=== PATIENT | female | born 1990 | race African-American/Black ===

== ENCOUNTER 2017-07-27 08:54 | Emergency (ER) | payer BC, OTHER, SELFPAY ==
--- NOTE | 2017-07-27 11:59 | ULT ---
BILATERAL UPPER EXTREMITY VENOUS DOPPLER WITH SPECTRAL ANALYSIS AND COLOR-FLOW EVALUATION: 07/27/2017 HISTORY: Elevated D-dimer. The patient also reports posterior right leg pain, which started one week ago. FINDINGS: Rose-scale, color-flow, Doppler evaluation, and spectral analysis of the bilateral upper extremity v enous structures is performed with 2D imaging. The bilateral upper extremity common femoral, superf icial femoral, popliteal, posterior tibial, most proximal greater saphenous, and profunda femoral ve ins are imaged. The distal superficial femoral veins bilaterally are not well seen on Rose-scale imaging, which limi ts evaluation for nonocclusive DVT, but there is normal flow within these venous structures, and the re is no evidence of an occlusive thrombus at these levels. There is otherwise normal lumen shirley sibility, flow, and augmentation in the remaining visualized deep venous structures of the bilateral upper extremities. IMPRESSION: Limited evaluation for nonocclusive thrombus in the distal superficial veins bilaterally due to diff iculty imaging on Rose-scale images, but there is normal flow within these veins. There is otherwis e no evidence of a deep venous thrombosis involving the remaining visualized deep venous structures of the bilateral upper extremities. POS: [facility]
== END 2017-07-27 12:16 | disposition home or self-care (01) ==
LOC: ERS 08:54
DX: S86.911A Strain of unspecified muscle(s) and tendon(s) at lower leg level, right leg, initial encounter (principal); F41.9 Anxiety disorder, unspecified; Z79.899 Other long term (current) drug therapy; X58.XXXA Exposure to other specified factors, initial encounter
CPT/HCPCS: 36415; 85379; 93970

== ENCOUNTER 2017-07-31 22:36 | Emergency (ER) | payer SELFPAY | END 2017-08-01 01:35 | disposition home or self-care (01) | LOC: ERS 22:36 | DX: F43.0 Acute stress reaction (principal); F41.9 Anxiety disorder, unspecified; Z79.899 Other long term (current) drug therapy | CPT/HCPCS: 99284 ==

== ENCOUNTER 2017-09-06 18:27 | Emergency (ER) | payer SELFPAY ==
[2017-09-06 19:20] LABS: Hematocrit 40.7 % (36.0-47.0); Mean Platelet Volume 6.7 fL (7.4-10.4); Red Blood Cell (RBC) Count 4.86 mill/uL (4.20-5.40); White Blood Cell (WBC) Count 5.2 thou/uL (4.8-10.8)
[2017-09-06 19:38] LABS: Bilirubin Negative (Negative); Blood, Urine Negative (Negative); Glucose, Urine (Dipstick) Negative (Negative); Ketone, Urine Negative (Negative); Nitrite Negative (Negative); Protein, Urine (Dipstick) Negative (Neg-Trace)
[2017-09-06 19:41] LABS: ALT (SGPT) 12 U/L (8-55); AST (SGOT) 15 U/L (5-34); Alkaline Phosphatase 59 U/L (40-150); Anion Gap 9 mmol/L (10-20); BUN (Urea Nitrogen) 10 mg/dL (7.0-18.7); Bilirubin, Total 0.2 mg/dL (0.2-1.2); Calc. Creatinine Clearance 0 mL/min (70-130); Calcium 9.7 mg/dL (7.8-10.44); Carbon Dioxide 29 mmol/L (22-29); Chloride 106 mmol/L (98-107); Estimated GFR-MDRD Greater than 90; Protein, Total 8.3 g/dL (6.0-8.3)
[2017-09-06 19:50] LABS: Neutrophil 28 % (42-75)
== END 2017-09-06 20:21 | disposition home or self-care (01) ==
LOC: ERS 18:27
DX: K52.9 Noninfective gastroenteritis and colitis, unspecified (principal); F41.9 Anxiety disorder, unspecified; Z79.899 Other long term (current) drug therapy
CPT/HCPCS: 36415; 80053; 81003; 81025; 85025; 99284

== ENCOUNTER 2017-10-18 04:34 | Emergency (ER) | payer SELFPAY | END 2017-10-18 07:15 | disposition left against medical advice (07) | LOC: ERS 04:34 | DX: Z53.21 Procedure and treatment not carried out due to patient leaving prior to being seen by health care provider (principal) ==

== ENCOUNTER 2017-10-19 08:17 | Emergency (ER) | payer SELFPAY | END 2017-10-19 09:36 | disposition home or self-care (01) | LOC: ERS 08:17 | DX: S86.911A Strain of unspecified muscle(s) and tendon(s) at lower leg level, right leg, initial encounter (principal); F41.9 Anxiety disorder, unspecified; Z79.899 Other long term (current) drug therapy; X58.XXXA Exposure to other specified factors, initial encounter | CPT/HCPCS: 99283 ==

== ENCOUNTER 2018-06-20 18:22 | Inpatient (IN) | payer SELFPAY ==
[~2018-06-20 18:22] MED LIST: ISOVUE-370 76%-LOCM 1 ML ONE
[2018-06-20 19:10] LABS: Bilirubin Negative (Negative); Blood, Urine Negative (Negative); Clarity CLEAR (Clear); Glucose, Urine (Dipstick) Negative (Negative); Leukocyte Negative (Negative); Nitrite Negative (Negative); Protein, Urine (Dipstick) Negative (Neg-Trace); Specific Gravity, Urine 1.027 (1.002-1.036)
[2018-06-20 19:11] LABS: Pregnancy Test - Urine (BHCG) Negative (Negative); Pregu Control Background? CLEAR/WHITE (CLR/WHITE); Pregu Control Bar Appear? YES (CONTROL BAR); Specific Gravity 1.027 (1.002-1.036)
[2018-06-20] MEDS ORDERED: Dicyclomine 20 MG TAB ONE (20:14)
[2018-06-20] MEDS ORDERED: Ondansetron ODT 4 MG TAB ONE (20:14)
[2018-06-20 20:33] LABS: #Basophils 0.1 thou/uL (0.0-0.2); #Lymphocytes 2.4 thou/uL (1.20-3.40); #Monocytes 0.5 thou/uL (0.11-0.59); #Neutrophils 1.9 thou/uL (1.40-6.50); %Basophils 1.3 % (0.0-1.0); %Eosinophils 0.4 % (0.0-10.0); %Lymphocytes 49.2 % (21.0-51.0); %Monocytes 9.5 % (0.0-10.0); %Neutrophils 39.7 % (42.0-75.0); Hemoglobin 14.4 g/dL (12.0-16.0); Mean Corpuscular HGB CONC 32.9 g/dL (32.0-36.0); Mean Corpuscular Hemoglobin 27.8 pg (27.0-31.0); Mean Corpuscular Volume 84.3 fL (78.0-98.0); Mean Platelet Volume 6.9 fL (7.4-10.4); Platelet Count 327 thou/uL (130-400); RBC Distribution Width 12.1 % (11.5-14.5); Red Blood Cell (RBC) Count 5.18 mill/uL (4.20-5.40); White Blood Cell (WBC) Count 4.8 thou/uL (4.8-10.8)
--- NOTE | 2018-06-20 20:55 | CT ---
CT ABDOMEN AND PELVIS WITH IV CONTRAST: HISTORY: Abdominal pain. FINDINGS: The lung bases are clear. The liver, spleen, kidneys, adrenal glands, and pancreas are within normal limits. Fibroid involvement of the uterus. The urinary bladder is incompletely distended. Within the inferior vena cava, below the level of the renal veins and extending into the right common iliac vein, is a tubular low density filling defect, measuring up to 1 cm and extending over a lengt h of approximately 12 cm. The more distal iliac and femoral veins do not contain this clot. IMPRESSION: Tubular thrombus within the lower inferior vena cava and the right common iliac vein, as detailed abo ve. Findings were called to Dr. Austin in the emergency department at 2042 hours. CODE CR POS: [id number]
[2018-06-20 21:15] LABS: ALT (SGPT) 11 U/L (8-55); AST (SGOT) 23 U/L (5-34); Albumin 4.6 g/dL (3.5-5.0); Alkaline Phosphatase 71 U/L (40-150); Anion Gap 15 mmol/L (10-20); BUN (Urea Nitrogen) 12 mg/dL (7.0-18.7); Bilirubin, Total 0.3 mg/dL (0.2-1.2); Calc. Creatinine Clearance 0 mL/min (70-130); Calcium 9.9 mg/dL (7.8-10.44); Carbon Dioxide 24 mmol/L (22-29); Chloride 102 mmol/L (98-107); Estimated GFR-MDRD Greater than 90; Globulin 4.4 g/dL (2.4-3.5); Glucose 81 mg/dL (70-105); Lipase 27 U/L (8-78); Potassium 4.4 mmol/L (3.5-5.1); Sodium 137 mmol/L (136-145)
[2018-06-20] MEDS ORDERED: Lorazepam 2 MG/ML VIAL ONE (21:21)
[2018-06-20 21:28] LABS: INR-International Normal Ratio 0.9; PTT 29.8 SEC (22.9-36.1); Prothrombin Time 12.3 SEC (12.0-14.7)
[2018-06-20] MEDS ORDERED: Enoxaparin Sodium 100 MG/ML SYRINGE ONE ×2 (21:55→21:58)
[2018-06-20 22:34] LABS: PTT 30.2 SEC (22.9-36.1)
[2018-06-20 22:35] LABS: D-Dimer Test 0.85 *mcg/mL (0.27-0.43)
--- NOTE | 2018-06-21 00:20 | HP ---
PRIMARY CARE PHYSICIAN: Dr. Oleg Singletary. REASON FOR ADMISSION: IVC thrombus. HISTORY OF PRESENT ILLNESS: A 28-year-old -Greek female with a history of anxiety disorder who presented to emergency room with a complaint of abdominal cramps and bloating. She reports that this type of abdominal cramps and bloating happens intermittently. She reports that with spicy food . She denies any abdominal distention. Only one time today she had diarrhea, which was greenish wit hout any fever or chills or blurred. She did not notice any pus or mucus with the stool. She did no t take any antibiotics. She did not have any fever or chills. She denies any UTI symptoms. The sym ptoms were going on for a period of time and that is why today, she decided to come to the emergency room for evaluation. In the emergency room, she was given Bentyl, Zofran. After that, patient's andria n was improved. She reports that whenever pain comes, at that time, the intensity is about 8 and aft er pain medication, it reduced to 4 and when I saw this patient, at that time, her abdominal pain was completely subsided. In the emergency room, she had a CT of the abdomen and pelvis, which showed tu bular thrombus within the lower inferior vena cava and the right common iliac vein. Patient denies a ny previous history of DVT or blurred or pulmonary embolism. She denies any chest pain, palpitation, dizziness, shortness of breath. She denies any immobilization. She denies any cancer history. She denies any family history of blood clot disorder. She denies any recent travel or immobilization. Only she reports that she has intermittent menorrhagia. Patient reports that she was on every 3 bryan hs hormonal injection, but she missed a couple of injections lately. CT angio was done because her D -dimer was slightly elevated and that is why incidentally tubular thrombus was found in the inferior vena cava. Subsequently, patient was given Lovenox 1 mg/kg and hypercoagulable workup was sent. ER physician spoke with the cardiovascular surgeon social worker delinquency prevention, and they recommended medical therapy. ALLERGIES: No known drug allergy. CURRENT HOME MEDICATIONS: Xanax 0.5 mg p.o. as needed, venlafaxine 150 mg p.o. at bedtime. REVIEW OF SYSTEMS: The following complete review of systems was negative, unless otherwise mentioned in the HPI or below: Constitutional: Weight loss or gain, ability to conduct usual activities. Sk in: Rash, itching. Eyes: Double vision, pain. ENT/Mouth: Nose bleeding, neck stiffness, pain, te nderness. Cardiovascular: Palpitations, dyspnea on exertion, orthopnea. Respiratory: Shortness of breath, wheezing, cough, hemoptysis, fever or night sweats. Gastrointestinal: Poor appetite, abdom inal pain, heartburn, nausea, vomiting, constipation, or diarrhea. Genitourinary: Urgency, frequenc y, dysuria, nocturia. Musculoskeletal: Pain, swelling. Neurologic/Psychiatric: Anxiety, depressio n. Allergy/Immunologic: Skin rash, bleeding tendency. Please see my HPI for pertinent positive and negative. PAST MEDICAL HISTORY: The patient does not have any previous medical history. PAST SURGICAL HISTORY: The patient had x1. PAST PSYCHIATRIC HISTORY: Anxiety disorder. SOCIAL HISTORY: The patient lives at home with family. No history of tobacco, alcohol, or illicit d rug abuse. FAMILY HISTORY: No strong family history of premature coronary artery disease, stroke, or cancer. N o family history of blood clot disorder. EMERGENCY ROOM COURSE: Patient is given IV fluid, Bentyl 20 mg, Zofran 4 mg, Ativan 0.5 mg, and Love nox 90 mg subcu. PHYSICAL EXAMINATION: VITAL SIGNS: On arrival, blood pressure 124/86, pulse 90, respiratory rate 18, temperature 99.1, sat uration 96% on room air, weight 90.7 kilograms. GENERAL: Patient is currently alert, awake, in no obvious acute distress. HEAD: Normocephalic, atraumatic. EYES: Pupils round, reactive to light. Extraocular muscle intact. ENT: Oropharynx within normal limits. Moist mucous membranes. No oral lesion, no pharyngeal erythe ma, no exudate. NECK: Supple. No JVD, no thyromegaly, no carotid bruit, no jugular venous distention. LUNGS: Clear to auscultation without any rhonchi or rales. CARDIAC: S1, S2 regular. No murmur, no gallop, no rub. ABDOMEN: Soft, bowel sounds present, nontender, nondistended. No organomegaly, no mass, no suprapub ic tenderness, no peritoneal signs, no guarding, no rigidity, no rebound. No suprapubic tenderness. EXTREMITIES: Upper extremity: Passive movement of all joints are normal. Lower extremities: No ed tammy. Good peripheral pulsation. No calf tenderness. SKIN: No skin rash. HEMATOLOGICAL: No lymphadenopathy. PSYCHIATRIC: Normal affect. SIGNIFICANT LABORATORY AND DIAGNOSTIC DATA: CT of the abdomen and pelvis with contrast showing tubul ar thrombus with the lower inferior vena cava and right common iliac vein. CBC: WBC 4.8, hemoglobin 14.4, platelets 327,000. INR 0.9. D-dimer 0.85. BMP shows sodium 137, potassium 4.4, chloride 102 , carbon dioxide 24, anion gap 15, BUN 12, creatinine 0.87 and glucose 81, calcium 9.9. LFT: AST 23 , ALT 11, alkaline phosphatase 71, albumin 4.6, lipase 27. Homocysteine 10.0. Urinalysis normal. P regnancy test negative. ASSESSMENT AND PLAN: 1. Abdominal pain, unclear etiology, unexplained and resolved intermittent in nature. 2. Mural thrombus in the inferior vena cava and right common iliac vein. Etiology uncertain. Hyper coagulable workup sent. We will consult automotive design drafter. The patient will be treated with Lovenox 1 mg /kg subcu twice daily. I have discussed with the patient about oral anticoagulation therapy, warfari n, as well as newer oral anticoagulant agent in detail. The patient will make decision tomorrow. Michell carmona has no insurance. She prefers cheaper medication. We will monitor PT and INR. We will also consu lt Cardiovascular Surgeon as well to look at the CT scan whether this finding is related with clot or something else. 3. Obesity. Dietary education given, weight loss education given. 4. Anxiety disorder. Continue Xanax and venlafaxine as per home dosage. 5. Uterine fibroid with a history of menorrhagia. The patient will need outpatient followup. 6. Deep venous thrombosis prophylaxis. Patient is already on full dose of Lovenox. 7. Gastrointestinal prophylaxis, Pepcid 20 mg p.o. b.i.d. 8. Code status: The patient is FULL CODE. Patient is making her decision by herself. Disposition plan based on clinical course. Follow up on thrombosis panel. Plan of care discussed wi th the patient in detail.
[2018-06-21] MEDS ORDERED: Zolpidem Tartrate 5 MG TAB PO PRN (00:48)
[2018-06-21] MEDS ORDERED: Milk Of Magnesia 30 ML UDCUP PO PRN (00:48)
[2018-06-21] MEDS ORDERED: Mag-Al 1200 mg/1200 mg/30 ML UDCUP PO PRN (00:48)
[2018-06-21] MEDS ORDERED: Senokot 8.6 MG TAB PO PRN (00:48)
[2018-06-21] MEDS ORDERED: Ondansetron HCl/PF 4 MG/2 ML Vial IVP PRN (00:48)
[2018-06-21] MEDS ORDERED: Ondansetron ODT 4 MG TAB PO PRN (00:48)
[2018-06-21] MEDS ORDERED: Loperamide HCl 2 MG CAP PO PRN (00:48)
[2018-06-21] MEDS ORDERED: Acetaminophen 325 MG TAB PO PRN (00:48)
[2018-06-21 01:00] VITALS: BMI 28.3
[2018-06-21 06:34] LABS: Anion Gap 12 mmol/L (10-20); BUN (Urea Nitrogen) 8 mg/dL (7.0-18.7); Calc. Creatinine Clearance 150 mL/min (70-130); Calcium 9.2 mg/dL (7.8-10.44); Carbon Dioxide 24 mmol/L (22-29); Chloride 107 mmol/L (98-107); Estimated GFR-MDRD Greater than 90; Glucose 94 mg/dL (70-105); Potassium 3.8 mmol/L (3.5-5.1); Sodium 139 mmol/L (136-145)
[2018-06-21 06:51] LABS: Prothrombin Time 13.3 SEC (12.0-14.7)
[2018-06-21 07:25] LABS: Eosinophils 2 % (0-10); Hemoglobin 12.9 g/dL (12.0-16.0); Lymphocytes 47 % (21-51); MDiff Complete? YES; Mean Corpuscular HGB CONC 32.6 g/dL (32.0-36.0); Mean Corpuscular Hemoglobin 27.8 pg (27.0-31.0); Mean Corpuscular Volume 85.2 fL (78.0-98.0); Mean Platelet Volume 6.8 fL (7.4-10.4); Monocytes 10 % (0-10); Myelocyte 1 % (0-0); Neutrophil 34 % (42-75); Platelet Count 314 thou/uL (130-400); RBC Distribution Width 12.3 % (11.5-14.5); RBC Morphology Normal; Reactive Lymphocytes 5 % (0-10); Red Blood Cell (RBC) Count 4.63 mill/uL (4.20-5.40); White Blood Cell (WBC) Count 4.9 thou/uL (4.8-10.8)
[2018-06-21] MEDS: Famotidine 20 MG TAB PO SCH ×2 (08:34→19:59)
[2018-06-21] MEDS: Venlafaxine HCl XR 75 MG CAP PO SCH (08:34)
[2018-06-21] MEDS: Enoxaparin Sodium 100 MG/ML SYRINGE SC SCH ×2 (08:35→19:59)
--- NOTE | 2018-06-21 10:41 | ULT ---
VENOUS DOPPLER DUPLEX ULTRASOUND BILATERAL LOWER EXTREMITIES: CPT: 25709 ICD-10-PCS: B54D INDICATIONS: Venous thrombosis. IVC thrombus. TECHNIQUE: Color-flow Doppler, spectral wave-form analysis of pulsed Doppler, and shah-scale imaging with compre ssion and augmentation were used to evaluate the bilateral common femoral, femoral, popliteal, pipe stem sawyer ior tibial, and superficial femoral veins, and the proximal portions of the profunda femoral and grea ter saphenous veins. FINDINGS: There is appropriate compressibility and flow within the imaged deep venous system of each lower extr emity without evidence of DVT identified. IMPRESSION: No deep venous thrombosis within the visualized bilateral lower extremities. POS: [facility]
--- NOTE | 2018-06-21 13:44 | PDOC.PN ---
- Subjective Encounter Start Date: 06/21/18 Encounter Start Time: 13:43 Subjective: feels OK. no andria in abdomen/legs. no SOB/fever -: only on Depo provera shots monthly. -: no FH or personal h/o clotting disorder - Objective Resuscitation Status: Resuscitation Status FULL:Full Resuscitation MAR Reviewed: Yes Vital Signs & Weight: Vital Signs (12 hours) Temp Pulse Resp BP Pulse Ox 06/21/18 12:15 98.3 F 67 18 110/79 100 06/21/18 08:28 98.1 F 75 20 113/67 98 06/21/18 08:25 98.3 F 67 18 06/21/18 03:28 98.1 F 83 18 103/65 97 Weight Weight 197 lb Result Diagrams: 06/21/18 05:39 06/21/18 05:39 Radiology Reviewed by me: Yes (Doppler- no DVT) Phys Exam - Physical Examination Constitutional: NAD HEENT: PERRLA, moist MMs, sclera anicteric, oral pharynx no lesions Neck: no nodes, no JVD, supple, full ROM Respiratory: no wheezing, no rales, no rhonchi, clear to auscultation bilateral Cardiovascular: RRR, no significant murmur, no rub Gastrointestinal: soft, non-tender, no distention, positive bowel sounds Musculoskeletal: no edema, pulses present Neurological: non-focal, normal sensation, moves all 4 limbs Psychiatric: normal affect, A&O x 3 Skin: no rash Dx/Plan (1) IVC thrombosis Code(s): I82.220 - ACUTE EMBOLISM AND THROMBOSIS OF INFERIOR VENA CAVA Status : Acute (2) Common femoral vein thrombosis Status: Acute - Plan DVT proph w/SCDs cont BID Lovenox. -: will need PO AC for prolonged time for unprovoked Clot.Margarette aldrich -: will get CTS and Hematology recs -: hemodynamically stable -: am labs * . Review of Systems - Review of Systems Constitutional: negative: fever, chills, sweats, weakness, malaise, other ENT: negative: Ear Pain, Ear Discharge, Nose Pain, Nose Discharge, Nose Congestion, Mouth Pain, Mouth Swelling, Throat Pain, Throat Swelling, Other Respiratory: negative: Cough, Dry, Shortness of Breath, Hemoptysis, SOB with Excertion, Pleuritic Pain, Sputum, Wheezing Cardiovascular: negative: chest pain, palpitations, orthopnea, paroxysmal nocturnal dyspnea, edema, light headedness, other Gastrointestinal: negative: Nausea, Vomiting, Abdominal Pain, Diarrhea, Constipation, Melena, Hematochezia, Other Genitourinary: negative: Dysuria, Frequency, Incontinence, Hematuria, Retention , Other Musculoskeletal: negative: Neck Pain, Shoulder Pain, Arm Pain, Back Pain, Hand Pain, Leg Pain, Foot Pain, Other Skin: negative: Rash, Lesions, Nawaf, Bruising, Other Neurological: negative: Weakness, Numbness, Incoordination, Change in Speech, Confusion, Seizures, Other - Medications/Allergies Allergies/Adverse Reactions: Allergies Allergy/AdvReac Type Severity Reaction Status Date / Time No Known Allergies Allergy Verified 06/21/18 00:56 Medications: Current Medications Acetaminophen (Tylenol) 650 mg PO Q4H PRN PRN Reason: Headache/Fever or Pain Hydrocodone Bitart/Acetaminophen ([place] 5/325) 1 tab PO Q4H PRN PRN Reason: Moderate Pain (4-6) Al Hydroxide/Mg Hydroxide (Maalox) 30 ml PO Q6H PRN PRN Reason: Heartburn or Indigestion Alprazolam (Xanax) 0.25 mg PO DAILYPRN PRN PRN Reason: Anxiety Enoxaparin Sodium (Lovenox) 90 mg SC 0900,2100 [facility] Last Admin: 06/21/18 08:35 Dose: 90 mg Famotidine (Pepcid) 20 mg PO BID [facility] Last Admin: 06/21/18 08:34 Dose: 20 mg Loperamide HCl (Imodium) 2 mg PO PRN PRN PRN Reason: Diarrhea/Loose Stools Magnesium Hydroxide (Milk Of Magnesium) 30 ml PO DAILYPRN PRN PRN Reason: Constipation Ondansetron HCl (Zofran Odt) 4 mg PO Q6H PRN PRN Reason: Nausea/Vomiting Ondansetron HCl (Zofran) 4 mg IVP Q6H PRN PRN Reason: Nausea/Vomiting Senna (Senokot) 2 tab PO HSPRN PRN PRN Reason: Constipation Venlafaxine HCl (Effexor Xr) 150 mg PO DAILY [facility] Last Admin: 06/21/18 08:34 Dose: 150 mg Zolpidem Tartrate (Ambien) 5 mg PO HSPRN PRN PRN Reason: Insomnia
--- NOTE | 2018-06-21 17:34 | CON ---
DATE OF CONSULTATION: 06/21/2018 HISTORY OF PRESENT ILLNESS: Mr. Gregorio is a 28-year-old woman who uses Depo-Provera. She presented to the emergency department with abdominal pain that was intermittent over many weeks. She had cram ps and bloating. As a part of her workup, she had a CT angiogram performed of her abdomen due to sli ghtly elevated D-dimer. She was found to have a right iliac DVT which extended into the inferior margareth a cava. She has no previous history of DVT. She has no history of arterial thrombosis. She has no recent tr violet history. She has no familial history of early arterial or venous thrombosis. She has been on n o other medications. PAST MEDICAL HISTORY: None. PAST SURGICAL HISTORY: . SOCIAL HISTORY: She does not use tobacco or other drugs. PHYSICAL EXAMINATION: VITAL SIGNS: Her height is 5 feet and 10 inches, weight 197 pounds, temperature is 98.3, pulse is 67 and regular, blood pressure 110/79. LUNGS: Clear bilaterally. HEART: Rhythm is regular, without murmur. ABDOMEN: Soft and nontender. EXTREMITIES: There is no edema. VASCULAR: She has palpable carotid, radial, and femoral pulses bilaterally. RADIOLOGY: I have reviewed her CT angiogram. ASSESSMENT AND PLAN: Deep venous thrombosis in a 28-year-old woman on control. RECOMMENDATIONS: I would recommend stopping her control. Hypercoagulable workup has already b een drawn. She has no indication for inferior vena cava filter placement. I would recommend 6 month s of anticoagulation. If there are any positives in her hypercoagulable workup, this may necessitate lifelong anticoagulation.
--- NOTE | 2018-06-21 20:57 | CON ---
DATE OF CONSULTATION: 06/21/2018 REASON FOR CONSULTATION: DVT with IVC thrombus. HISTORY OF PRESENT ILLNESS: Ms. Gregorio is a pleasant 28-year-old - Indonesian female with no significant medical history, who presented to the emergency room with complaints of abdominal cramping and diarrhea for the past several weeks. She states that pain is intermittent. In the emergency room, CT scan of her abdomen and pelvis showed a thrombus within the lower inferior vena cava and the right common iliac vein. It was measured up to 1 cm and extended over a length of approximately 12 cm. She was admitted for further workup, started on Lovenox 1 mg/kg. A hypercoagulation panel was sent and is currently pending. The patient denies any past thrombotic events. She has no history of smoking. She has used Depo-Provera injections in the past. Her last injection was in January. She has not started her menses since that time. She has no family history of thrombotic events. No recent surgery. No recent travel. She is active. Denies any complaints at this time other than occasional abdominal discomfort. PAST MEDICAL HISTORY: Anxiety/depression. PAST SURGICAL HISTORY: x1. ALLERGIES: No known drug allergies. HOME MEDICATIONS: 1. Xanax 0.5 mg p.r.n. 2. Effexor 150 mg at bedtime. FAMILY HISTORY: No history of clotting disorder in the family. SOCIAL HISTORY: She is . She lives with her and child. No tobacco, alcohol, or illicit drug use. REVIEW OF SYSTEMS: Twelve-point review of systems is negative except for noted on HPI. PHYSICAL EXAMINATION: VITAL SIGNS: Temperature is 98.5, pulse is 84, respiratory rate 16, BP is 109/ 71. She is 100% on room air. GENERAL: Well-developed, well-nourished female in no acute distress. HEENT: Normocephalic, atraumatic. Pupils equal and reactive to light. NECK: Supple. CARDIOVASCULAR: Regular rate and rhythm. LUNGS: Clear. ABDOMEN: Soft, nontender, bowel sounds are positive. There is no organomegaly. EXTREMITIES: There is no clubbing, cyanosis or edema. SKIN: No rash. HEMATOLOGIC: There is no petechia or purpura. NEUROLOGIC: Nonfocal. PSYCHIATRIC: The patient is alert and oriented and appropriate. PERTINENT LABORATORY AND X-RAYS: Current WBCs are 4.9, hemoglobin 12.9, hematocrit 39.5, platelet count 314,000, 34% neutrophils, 47% lymphocytes, 5% reactive lymphocytes. PT is 13.3, INR is 1.0, PTT is 30.1. Sodium is 139, potassium 3.8, chloride 107, CO2 is 24, BUN is 8, creatinine 0.80, calcium is 9.2, total bilirubin is 0.3, AST is 23, ALT is 11, alkaline phosphatase is 71, albumin 4.6, lipase is 27. Homocysteine is 10. Serum total protein is 9, but with hemolysis. Urine is negative. Venogram showed no lower extremity DVT. ASSESSMENT: 1. Right common iliac thrombus with extension into the lower inferior vena cava. 2. History of progesterone use. DISCUSSION: The patient's thrombus may have been present for several weeks and is likely the cause of abdominal discomfort. Her last injection of Depo-Provera was in January; however, she has not had menses since that time. It is likely that Depo this is the cause of her thrombus which likely has been present for several weeks. The hypercoagulation panel has been ordered and is pending. Regardless, treatment is a 6 months of anticoagulation since it extends into the inferior vena cava. She is on Lovenox and should be transitioned to Coumadin at this time as it is affordable for her. Labs should be monitored by Coumadin clinic or her PCP. We will be happy to follow her up in the office if her coagulation panel is abnormal. Thank you for the consult. LUNA
[2018-06-21] MEDS: HYDROcodone/Acetaminophen 5/325 mg Tablet PO PRN (21:40)
[2018-06-22 05:44] LABS: Hemoglobin 12.9 g/dL (12.0-16.0); Platelet Count 299 thou/uL (130-400)
[2018-06-22 05:51] LABS: BHCG - Serum Negative (NEGATIVE); Pregs Control Background? CLEAR/WHITE (CLR/WHITE); Pregs Control Bar Appear? YES (CONTROL BAR)
[2018-06-22 06:06] LABS: Calc. Creatinine Clearance 147 mL/min (70-130); Estimated GFR-MDRD Greater than 90
[2018-06-22] MEDS: Venlafaxine HCl XR 75 MG CAP PO SCH (08:46)
[2018-06-22] MEDS: Famotidine 20 MG TAB PO SCH ×2 (08:46→21:11)
[2018-06-22] MEDS: Enoxaparin Sodium 100 MG/ML SYRINGE SC SCH ×2 (08:46→21:10)
[2018-06-22] MEDS: HYDROcodone/Acetaminophen 5/325 mg Tablet PO PRN ×2 (09:58→21:11)
[2018-06-22 10:32] LABS: Factor VIII Test 167.3 % ACTIVE (56-157)
[2018-06-22 10:37] LABS: Protein C Activity 124 % (78-152)
[2018-06-22 12:56] LABS: Cardiolipin IgA Ab 3.5 APL-U/mL (<14 Negative); Cardiolipin IgG Ab 2.5 GPL-U/mL (<10 Negative); Cardiolipin IgM Ab 2.3 MPL-U/mL (<10 Negative); EliA APS New Method **** NEW METHOD ****
--- NOTE | 2018-06-22 14:40 | PDOC.PN ---
- Subjective Encounter Start Date: 06/22/18 Encounter Start Time: 14:38 Subjective: feels well. no SOB/CP.no leg pain/swelling - Objective Resuscitation Status: Resuscitation Status FULL:Full Resuscitation MAR Reviewed: Yes Vital Signs & Weight: Vital Signs (12 hours) Temp Pulse Resp BP BP Pulse Ox 06/22/18 11:37 98.1 F 86 16 116/66 98 06/22/18 08:44 98.1 F 75 16 110/69 96 06/22/18 04:00 98.0 F 89 18 119/66 100 Weight Weight 197 lb I&O: 06/21/18 06/22/18 06/23/18 06:59 06:59 06:59 Intake Total 480 240 Balance 480 240 Result Diagrams: 06/22/18 05:17 06/22/18 05:17 Additional Labs: Laboratory Tests 06/20/18 06/20/18 22:07 22:07 Func Antithrombin III 102.0 Factor VIII Activity 167.3 H Anti-Cardiolipin IgG Ab 2.5 Anti-Cardiolipin IgA Ab 3.5 Anti-Cardiolipin IgM Ab 2.3 Phys Exam - Physical Examination Constitutional: NAD HEENT: PERRLA, moist MMs, sclera anicteric, oral pharynx no lesions Neck: no nodes, no JVD, supple, full ROM Respiratory: no wheezing, no rales, no rhonchi, clear to auscultation bilateral Cardiovascular: RRR, no significant murmur, no rub Gastrointestinal: soft, non-tender, no distention, positive bowel sounds Musculoskeletal: no edema, pulses present Neurological: non-focal, normal sensation, moves all 4 limbs Psychiatric: normal affect, A&O x 3 Skin: no rash Dx/Plan (1) IVC thrombosis Code(s): I82.220 - ACUTE EMBOLISM AND THROMBOSIS OF INFERIOR VENA CAVA Status : Acute (2) Common femoral vein thrombosis Status: Acute - Plan DVT proph w/lovenox, DVT proph w/SCDs discussed with pt in detail about anticoagulation. -: she would prefer coumadin as uninsured & could not afford Eliquis post 1 mo -: H/h stable. -: wait for final recs from hemeatology & CTS. -: HD stable.start coumadin & bridge w lovenox BID * . Review of Systems - Review of Systems Constitutional: negative: fever, chills, sweats, weakness, malaise, other ENT: negative: Ear Pain, Ear Discharge, Nose Pain, Nose Discharge, Nose Congestion, Mouth Pain, Mouth Swelling, Throat Pain, Throat Swelling, Other Respiratory: negative: Cough, Dry, Shortness of Breath, Hemoptysis, SOB with Excertion, Pleuritic Pain, Sputum, Wheezing Cardiovascular: negative: chest pain, palpitations, orthopnea, paroxysmal nocturnal dyspnea, edema, light headedness, other Gastrointestinal: negative: Nausea, Vomiting, Abdominal Pain, Diarrhea, Constipation, Melena, Hematochezia, Other Genitourinary: negative: Dysuria, Frequency, Incontinence, Hematuria, Retention , Other Musculoskeletal: negative: Neck Pain, Shoulder Pain, Arm Pain, Back Pain, Hand Pain, Leg Pain, Foot Pain, Other Skin: negative: Rash, Lesions, Nawaf, Bruising, Other Neurological: negative: Weakness, Numbness, Incoordination, Change in Speech, Confusion, Seizures, Other - Medications/Allergies Allergies/Adverse Reactions: Allergies Allergy/AdvReac Type Severity Reaction Status Date / Time No Known Allergies Allergy Verified 06/21/18 00:56 Medications: Current Medications Acetaminophen (Tylenol) 650 mg PO Q4H PRN PRN Reason: Headache/Fever or Pain Hydrocodone Bitart/Acetaminophen ([place] 5/325) 1 tab PO Q4H PRN PRN Reason: Moderate Pain (4-6) Last Admin: 06/22/18 09:58 Dose: 1 tab Al Hydroxide/Mg Hydroxide (Maalox) 30 ml PO Q6H PRN PRN Reason: Heartburn or Indigestion Alprazolam (Xanax) 0.25 mg PO DAILYPRN PRN PRN Reason: Anxiety Enoxaparin Sodium (Lovenox) 90 mg SC 0900,2100 [facility] Last Admin: 06/22/18 08:46 Dose: 90 mg Famotidine (Pepcid) 20 mg PO BID [facility] Last Admin: 06/22/18 08:46 Dose: 20 mg Loperamide HCl (Imodium) 2 mg PO PRN PRN PRN Reason: Diarrhea/Loose Stools Magnesium Hydroxide (Milk Of Magnesium) 30 ml PO DAILYPRN PRN PRN Reason: Constipation Ondansetron HCl (Zofran Odt) 4 mg PO Q6H PRN PRN Reason: Nausea/Vomiting Ondansetron HCl (Zofran) 4 mg IVP Q6H PRN PRN Reason: Nausea/Vomiting Senna (Senokot) 2 tab PO HSPRN PRN PRN Reason: Constipation Venlafaxine HCl (Effexor Xr) 150 mg PO DAILY [facility] Last Admin: 06/22/18 08:46 Dose: 150 mg Warfarin Sodium (Coumadin) 10 mg PO 1700 [facility] Zolpidem Tartrate (Ambien) 5 mg PO HSPRN PRN PRN Reason: Insomnia
[2018-06-22] MEDS: Warfarin Sodium 10 MG TAB PO SCH (16:54)
[2018-06-23 06:54] LABS: Prothrombin Time 12.9 SEC (12.0-14.7)
[2018-06-23] MEDS: Famotidine 20 MG TAB PO SCH ×2 (09:55→21:06)
[2018-06-23] MEDS: Venlafaxine HCl XR 75 MG CAP PO SCH (09:55)
[2018-06-23] MEDS: Enoxaparin Sodium 100 MG/ML SYRINGE SC SCH ×2 (09:56→21:04)
[2018-06-23] MEDS: ALPRAZolam 0.25 MG TAB PO PRN (12:52)
--- NOTE | 2018-06-23 14:42 | PDOC.PN ---
- Subjective Encounter Start Date: 06/23/18 Encounter Start Time: 14:40 Subjective: no new complaints. - Objective Resuscitation Status: Resuscitation Status FULL:Full Resuscitation MAR Reviewed: Yes Vital Signs & Weight: Vital Signs (12 hours) Temp Pulse Resp BP BP Pulse Ox 06/23/18 07:45 98.2 F 81 16 96 06/23/18 07:40 98.2 F 81 16 120/69 96 06/23/18 04:00 98.4 F 80 18 98/57 L 95 Weight Weight 200 lb 3.2 oz I&O: 06/22/18 06/23/18 06/24/18 06:59 06:59 06:59 Intake Total 480 1440 Balance 480 1440 Result Diagrams: 06/22/18 05:17 06/22/18 05:17 Phys Exam - Physical Examination Constitutional: NAD HEENT: PERRLA, moist MMs, sclera anicteric, oral pharynx no lesions Neck: no nodes, no JVD, supple, full ROM Respiratory: no wheezing, no rales, no rhonchi, clear to auscultation bilateral Cardiovascular: RRR, no significant murmur, no rub Gastrointestinal: soft, non-tender, no distention, positive bowel sounds Musculoskeletal: no edema, pulses present Neurological: non-focal, normal sensation, moves all 4 limbs Psychiatric: normal affect, A&O x 3 Skin: no rash Dx/Plan (1) IVC thrombosis Code(s): I82.220 - ACUTE EMBOLISM AND THROMBOSIS OF INFERIOR VENA CAVA Status : Acute (2) Common femoral vein thrombosis Status: Acute - Plan out of bed/ambulate, DVT proph w/SCDs start Coumadin and continue lovenox till INR therapeutic. -: pt w F/U w PCP for INR follow up -: H/H in am.daily PT/INR -: Hypercaog panel pending * . Review of Systems - Review of Systems Constitutional: negative: fever, chills, sweats, weakness, malaise, other ENT: negative: Ear Pain, Ear Discharge, Nose Pain, Nose Discharge, Nose Congestion, Mouth Pain, Mouth Swelling, Throat Pain, Throat Swelling, Other Respiratory: negative: Cough, Dry, Shortness of Breath, Hemoptysis, SOB with Excertion, Pleuritic Pain, Sputum, Wheezing Cardiovascular: negative: chest pain, palpitations, orthopnea, paroxysmal nocturnal dyspnea, edema, light headedness, other Gastrointestinal: negative: Nausea, Vomiting, Abdominal Pain, Diarrhea, Constipation, Melena, Hematochezia, Other Genitourinary: negative: Dysuria, Frequency, Incontinence, Hematuria, Retention , Other Musculoskeletal: negative: Neck Pain, Shoulder Pain, Arm Pain, Back Pain, Hand Pain, Leg Pain, Foot Pain, Other Skin: negative: Rash, Lesions, Nawaf, Bruising, Other Neurological: negative: Weakness, Numbness, Incoordination, Change in Speech, Confusion, Seizures, Other - Medications/Allergies Allergies/Adverse Reactions: Allergies Allergy/AdvReac Type Severity Reaction Status Date / Time No Known Allergies Allergy Verified 06/21/18 00:56 Medications: Current Medications Acetaminophen (Tylenol) 650 mg PO Q4H PRN PRN Reason: Headache/Fever or Pain Hydrocodone Bitart/Acetaminophen ([place] 5/325) 1 tab PO Q4H PRN PRN Reason: Moderate Pain (4-6) Last Admin: 06/22/18 21:11 Dose: 1 tab Al Hydroxide/Mg Hydroxide (Maalox) 30 ml PO Q6H PRN PRN Reason: Heartburn or Indigestion Alprazolam (Xanax) 0.25 mg PO DAILYPRN PRN PRN Reason: Anxiety Last Admin: 06/23/18 12:52 Dose: 0.25 mg Enoxaparin Sodium (Lovenox) 90 mg SC 0900,2100 [facility] Last Admin: 06/23/18 09:56 Dose: 90 mg Famotidine (Pepcid) 20 mg PO BID [facility] Last Admin: 06/23/18 09:55 Dose: 20 mg Loperamide HCl (Imodium) 2 mg PO PRN PRN PRN Reason: Diarrhea/Loose Stools Magnesium Hydroxide (Milk Of Magnesium) 30 ml PO DAILYPRN PRN PRN Reason: Constipation Miscellaneous Medication (Pharmacy To Dose) 0 each PO ASDIR [facility] Ondansetron HCl (Zofran Odt) 4 mg PO Q6H PRN PRN Reason: Nausea/Vomiting Ondansetron HCl (Zofran) 4 mg IVP Q6H PRN PRN Reason: Nausea/Vomiting Senna (Senokot) 2 tab PO HSPRN PRN PRN Reason: Constipation Venlafaxine HCl (Effexor Xr) 150 mg PO DAILY [facility] Last Admin: 06/23/18 09:55 Dose: 150 mg Warfarin Sodium (Coumadin) 10 mg PO 1700 [facility] Last Admin: 06/22/18 16:54 Dose: 10 mg Zolpidem Tartrate (Ambien) 5 mg PO HSPRN PRN PRN Reason: Insomnia
[2018-06-23] MEDS: Warfarin Sodium 10 MG TAB PO SCH (16:51)
[2018-06-23] MEDS: HYDROcodone/Acetaminophen 5/325 mg Tablet PO PRN (21:07)
[2018-06-24 05:43] LABS: INR-International Normal Ratio 1.1; Prothrombin Time 14.3 SEC (12.0-14.7)
[2018-06-24 05:57] LABS: Calc. Creatinine Clearance 149 mL/min (70-130); Estimated GFR-MDRD Greater than 90
[2018-06-24 06:38] LABS: Hemoglobin 13.2 g/dL (12.0-16.0); Platelet Count 328 thou/uL (130-400)
[2018-06-24] MEDS: Venlafaxine HCl XR 75 MG CAP PO SCH (08:47)
[2018-06-24] MEDS: Famotidine 20 MG TAB PO SCH ×2 (08:47→19:39)
[2018-06-24] MEDS: Enoxaparin Sodium 100 MG/ML SYRINGE SC SCH ×2 (08:48→19:39)
[2018-06-24 11:48] LABS: HEX PHOS LA Tube 1 55.6 SEC; HEX PHOS LA Tube 2 52.8 SEC; Hexagonal Phospholipid Neut 2.8 SEC (0-8.0)
--- NOTE | 2018-06-24 12:58 | PDOC.PN ---
- Subjective Encounter Start Date: 06/24/18 Encounter Start Time: 12:57 Subjective: feels good. no CP/SOB - Objective Resuscitation Status: Resuscitation Status FULL:Full Resuscitation MAR Reviewed: Yes Vital Signs & Weight: Vital Signs (12 hours) Temp Pulse Resp BP BP Pulse Ox 06/24/18 08:45 98.1 F 82 16 102/61 98 06/24/18 04:23 98.2 F 93 16 99/56 L 95 Weight Weight 200 lb I&O: 06/23/18 06/24/18 06/25/18 06:59 06:59 06:59 Intake Total 1440 Balance 1440 Result Diagrams: 06/24/18 04:58 06/24/18 04:58 Additional Labs: Laboratory Tests 06/20/18 06/20/18 06/21/18 20:25 22:07 05:39 INR 0.9 1.0 1.0 06/23/18 06/24/18 06:31 04:58 INR 1.0 1.1 Phys Exam - Physical Examination Constitutional: NAD HEENT: PERRLA, moist MMs, sclera anicteric, oral pharynx no lesions Neck: no nodes, no JVD, supple, full ROM Respiratory: no wheezing, no rales, no rhonchi, clear to auscultation bilateral Cardiovascular: RRR, no significant murmur, no rub Gastrointestinal: soft, non-tender, no distention, positive bowel sounds Musculoskeletal: no edema, pulses present Neurological: non-focal, normal sensation, moves all 4 limbs Psychiatric: normal affect, A&O x 3 Skin: no rash Dx/Plan (1) IVC thrombosis Code(s): I82.220 - ACUTE EMBOLISM AND THROMBOSIS OF INFERIOR VENA CAVA Status : Acute (2) Common femoral vein thrombosis Status: Acute - Plan DVT proph w/SCDs Couamdin still not at therapeutic levels.cont Lovenox for bridging -: HD stable. -: DC when INR therapeutic * . Review of Systems - Review of Systems Constitutional: negative: fever, chills, sweats, weakness, malaise, other ENT: negative: Ear Pain, Ear Discharge, Nose Pain, Nose Discharge, Nose Congestion, Mouth Pain, Mouth Swelling, Throat Pain, Throat Swelling, Other Respiratory: negative: Cough, Dry, Shortness of Breath, Hemoptysis, SOB with Excertion, Pleuritic Pain, Sputum, Wheezing Cardiovascular: negative: chest pain, palpitations, orthopnea, paroxysmal nocturnal dyspnea, edema, light headedness, other Gastrointestinal: negative: Nausea, Vomiting, Abdominal Pain, Diarrhea, Constipation, Melena, Hematochezia, Other Genitourinary: negative: Dysuria, Frequency, Incontinence, Hematuria, Retention , Other Musculoskeletal: negative: Neck Pain, Shoulder Pain, Arm Pain, Back Pain, Hand Pain, Leg Pain, Foot Pain, Other Skin: negative: Rash, Lesions, Nawaf, Bruising, Other Neurological: negative: Weakness, Numbness, Incoordination, Change in Speech, Confusion, Seizures, Other - Medications/Allergies Allergies/Adverse Reactions: Allergies Allergy/AdvReac Type Severity Reaction Status Date / Time No Known Allergies Allergy Verified 06/21/18 00:56 Medications: Current Medications Acetaminophen (Tylenol) 650 mg PO Q4H PRN PRN Reason: Headache/Fever or Pain Hydrocodone Bitart/Acetaminophen ([place] 5/325) 1 tab PO Q4H PRN PRN Reason: Moderate Pain (4-6) Last Admin: 06/23/18 21:07 Dose: 1 tab Al Hydroxide/Mg Hydroxide (Maalox) 30 ml PO Q6H PRN PRN Reason: Heartburn or Indigestion Alprazolam (Xanax) 0.25 mg PO DAILYPRN PRN PRN Reason: Anxiety Last Admin: 06/23/18 12:52 Dose: 0.25 mg Enoxaparin Sodium (Lovenox) 90 mg SC 0900,2100 [facility] Last Admin: 06/24/18 08:48 Dose: 90 mg Famotidine (Pepcid) 20 mg PO BID [facility] Last Admin: 06/24/18 08:47 Dose: 20 mg Loperamide HCl (Imodium) 2 mg PO PRN PRN PRN Reason: Diarrhea/Loose Stools Magnesium Hydroxide (Milk Of Magnesium) 30 ml PO DAILYPRN PRN PRN Reason: Constipation Miscellaneous Medication (Pharmacy To Dose) 0 each PO ASDIR [facility] Ondansetron HCl (Zofran Odt) 4 mg PO Q6H PRN PRN Reason: Nausea/Vomiting Ondansetron HCl (Zofran) 4 mg IVP Q6H PRN PRN Reason: Nausea/Vomiting Senna (Senokot) 2 tab PO HSPRN PRN PRN Reason: Constipation Venlafaxine HCl (Effexor Xr) 150 mg PO DAILY [facility] Last Admin: 06/24/18 08:47 Dose: 150 mg Warfarin Sodium (Coumadin) 10 mg PO 1700 [facility] Last Admin: 06/23/18 16:51 Dose: 10 mg Zolpidem Tartrate (Ambien) 5 mg PO HSPRN PRN PRN Reason: Insomnia
[2018-06-24] MEDS: Warfarin Sodium 10 MG TAB PO SCH (16:34)
[2018-06-24] MEDS: HYDROcodone/Acetaminophen 5/325 mg Tablet PO PRN ×2 (16:58→22:10)
[2018-06-24] MEDS: ALPRAZolam 0.25 MG TAB PO PRN (22:26)
[2018-06-25 06:06] LABS: INR-International Normal Ratio 1.4; Prothrombin Time 17.7 SEC (12.0-14.7)
[2018-06-25] MEDS: Famotidine 20 MG TAB PO SCH ×2 (08:42→19:59)
[2018-06-25] MEDS: Enoxaparin Sodium 100 MG/ML SYRINGE SC SCH ×2 (08:42→19:59)
[2018-06-25] MEDS: Venlafaxine HCl XR 75 MG CAP PO SCH (08:42)
--- NOTE | 2018-06-25 12:28 | PDOC.PN ---
- Subjective Encounter Start Date: 06/25/18 (f/u DVT) Encounter Start Time: 12:26 Subjective: Pt without complaints. BM today but has noticed constipation - Objective Resuscitation Status: Resuscitation Status FULL:Full Resuscitation Vital Signs & Weight: Vital Signs (12 hours) Temp Pulse Resp BP BP Pulse Ox 06/25/18 08:35 98.2 F 88 16 102/62 100 06/25/18 03:44 97.8 F 97 14 109/59 L 100 Weight Weight 205 lb 14.4 oz Result Diagrams: 06/24/18 04:58 06/24/18 04:58 EKG Reviewed by me: Yes (sinus 70's with pAC's) Phys Exam - Physical Examination Constitutional: NAD Respiratory: no wheezing, no rales, no rhonchi Cardiovascular: RRR, no significant murmur Gastrointestinal: soft, non-tender, positive bowel sounds Musculoskeletal: no edema, pulses present Neurological: non-focal, moves all 4 limbs Psychiatric: normal affect Dx/Plan (1) Common femoral vein thrombosis Status: Acute (2) IVC thrombosis Code(s): I82.220 - ACUTE EMBOLISM AND THROMBOSIS OF INFERIOR VENA CAVA Status : Acute - Plan * R iliac vein thrombosis with extension into IVC - pt tolerating lovenox and warfarin - level is 1.4. Awaiting therapeutic INR 2-3, duration of tx is 6 months and recommend d/c hormonal contraception. * * Will need to determine location for outpatient monitoring - coumadin clinic vs. Dr. Singletary's office/PCP * * GI prophy - not indicated * code status full * * reviewed plan of care with patient, no questions or further needs at end of eval
[2018-06-25] MEDS: Warfarin Sodium 10 MG TAB PO SCH (17:18)
[2018-06-25] MEDS: Docusate 100 MG CAP PO SCH (19:59)
[2018-06-25] MEDS: ALPRAZolam 0.25 MG TAB PO PRN (21:23)
[2018-06-25] MEDS: HYDROcodone/Acetaminophen 5/325 mg Tablet PO PRN (21:23)
[2018-06-26 05:21] LABS: INR-International Normal Ratio 1.7; Prothrombin Time 19.9 SEC (12.0-14.7)
[2018-06-26 05:30] LABS: Platelet Count 307 thou/uL (130-400)
[2018-06-26 05:35] LABS: Calc. Creatinine Clearance 164 mL/min (70-130); Estimated GFR-MDRD Greater than 90
[2018-06-26] MEDS: Venlafaxine HCl XR 75 MG CAP PO SCH (07:41)
[2018-06-26] MEDS: Enoxaparin Sodium 100 MG/ML SYRINGE SC SCH ×2 (07:41→20:26)
[2018-06-26] MEDS: Docusate 100 MG CAP PO SCH ×2 (07:42→20:26)
[2018-06-26] MEDS: Famotidine 20 MG TAB PO SCH (07:43)
--- NOTE | 2018-06-26 09:46 | PDOC.PN ---
- Subjective Encounter Start Date: 06/26/18 (f/u IVC thrombosis) Encounter Start Time: 09:44 Subjective: Pt without complaints, denies any pain/difficulty breathing -: denies n/v. Is ambulating without difficulty - Objective Resuscitation Status: Resuscitation Status FULL:Full Resuscitation Vital Signs & Weight: Vital Signs (12 hours) Temp Pulse Resp BP Pulse Ox 06/26/18 07:37 98.2 F 70 16 118/74 100 06/26/18 04:00 98.1 F 83 18 115/64 Weight Weight 201 lb 8 oz I&O: 06/25/18 06/26/18 06/27/18 06:59 06:59 06:59 Intake Total 1520 Balance 1520 Result Diagrams: 06/26/18 04:48 06/26/18 04:48 EKG Reviewed by me: Yes (sinus 70-90's) Phys Exam - Physical Examination Constitutional: NAD Respiratory: no wheezing, no rales, no rhonchi, clear to auscultation bilateral Cardiovascular: RRR, no significant murmur Gastrointestinal: soft, non-tender, no distention, positive bowel sounds Musculoskeletal: no edema Neurological: non-focal, moves all 4 limbs Psychiatric: normal affect Skin: no rash Dx/Plan (1) Common femoral vein thrombosis Status: Acute (2) IVC thrombosis Code(s): I82.220 - ACUTE EMBOLISM AND THROMBOSIS OF INFERIOR VENA CAVA Status : Acute - Plan * Hemodynamically normal without events on tele - transfer to medical floor. * * R iliac vein thrombosis with extension into IVC - pt tolerating lovenox and warfarin - level is 1.7. Is on full dose lovenox, awaiting therapeutic INR 2-3 , duration of tx is 6 months. * * Recommend d/c hormonal contraception. * * Will need to determine location for outpatient monitoring - coumadin clinic vs. Dr. Singletary's office/PCP. Coumadin chosen as pt without insurance that will cover other OAC's * * GI prophy - not indicated * code status full * * reviewed plan of care with patient, no questions or further needs at end of eval.
[2018-06-26] MEDS: Warfarin Sodium 10 MG TAB PO SCH (16:37)
[2018-06-26] MEDS: ALPRAZolam 0.25 MG TAB PO PRN (20:30)
[2018-06-26] MEDS: HYDROcodone/Acetaminophen 5/325 mg Tablet PO PRN (22:40)
[2018-06-27 05:11] LABS: Prothrombin Time 22.4 SEC (12.0-14.7)
[2018-06-27] MEDS: Enoxaparin Sodium 100 MG/ML SYRINGE SC SCH (09:07)
[2018-06-27] MEDS: Venlafaxine HCl XR 75 MG CAP PO SCH (09:08)
[2018-06-27] MEDS: Docusate 100 MG CAP PO SCH (09:08)
--- NOTE | 2018-06-27 11:13 | DIS ---
DATE OF ADMISSION: 06/20/2018 DATE OF DISCHARGE: 06/27/2018 PRIMARY CARE PROVIDER: Oleg Singletary M.D. DISCHARGE DISPOSITION: Home. 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 DISCHARGE MEDICATIONS: Warfarin 10 mg daily at 5:00 p.m., alprazolam 0.25 mg every 24 hours p.r.n., Effexor XR 150 mg daily. ALLERGIES: None. PENDING AT THE TIME OF DISCHARGE: Nothing. CODE STATUS: FULL. HOSPITAL COURSE: The patient admitted with GI complaints, found to have a thrombus in the right comm on iliac vein, in the lower inferior vena cava. She was started on enoxaparin, transitioned to Couma din. She has finally become therapeutic on Coumadin with an INR of 2.0. Her hemoglobin has been sta ble throughout the hospitalization. White count was normal on both studies. Her chemistries were un remarkable. Serologies were done looking for a hereditary coagulopathy; they were all normal. The will lazo has been on Depo-Provera for control. She has been advised to stop this. Currently, javi carmona is doing well, asymptomatic. She is being discharged for followup with Dr. Singletary in 7 days to angela jolly PT/INR in 3 days. Prescription was given for 5 mg twice a day, so that adjustments could be mad e easier with one 10 mg tablet a day. She did have consultations with, Oncology, Suzanne Amor, and C ardiovascular Surgery, Dr. Socrates Maria during her hospital stay. No procedures were done.
[2018-06-27 11:51] VITALS: BP 113/77; TEMP 98.7
== END 2018-06-27 13:37 | disposition home or self-care (01) | DRG 294 ==
LOC: ERS 18:22 → 2NO 06-21 00:06 → T4-A 06-26 22:09
PROVIDERS: ADMIT Internal Medicine; ATTEND Internal Medicine
DX: I82.220 Acute embolism and thrombosis of inferior vena cava (principal); I82.421 Acute embolism and thrombosis of right iliac vein; F41.9 Anxiety disorder, unspecified; E66.9 Obesity, unspecified; D25.9 Leiomyoma of uterus, unspecified
CPT/HCPCS: 36415; 74177; 80048; 80053; 81003; 81025; 81240; 81241; 82274; 82565; 83090; 83690; 84703; 85014; 85018; 85025; 85049; 85240; 85300; 85303; 85305; 85307; 85379; 85598; 85610; 85730; 86147; 93970; 96361; 96372; 96374; J1650; J2060; J2405; Q0162

== ENCOUNTER 2018-06-28 23:27 | Emergency (ER) | payer SELFPAY ==
[2018-06-29 00:28] LABS: INR-International Normal Ratio 2.3; PTT 44.7 SEC (22.9-36.1); Prothrombin Time 24.9 SEC (12.0-14.7)
[2018-06-29 00:39] LABS: #Basophils 0.1 thou/uL (0.0-0.2); #Lymphocytes 2.3 thou/uL (1.20-3.40); #Monocytes 0.6 thou/uL (0.11-0.59); #Neutrophils 2.2 thou/uL (1.40-6.50); %Basophils 2.2 % (0.0-1.0); %Eosinophils 0.6 % (0.0-10.0); %Lymphocytes 43.6 % (21.0-51.0); %Monocytes 11.9 % (0.0-10.0); %Neutrophils 41.8 % (42.0-75.0); ALT (SGPT) 60 U/L (8-55); AST (SGOT) 47 U/L (5-34); Albumin 4.2 g/dL (3.5-5.0); Alkaline Phosphatase 67 U/L (40-150); Anion Gap 12 mmol/L (10-20); BUN (Urea Nitrogen) 13 mg/dL (7.0-18.7); Bilirubin, Total Less than 0.2 mg/dL (0.2-1.2); Calc. Creatinine Clearance 0 mL/min (70-130); Calcium 9.4 mg/dL (7.8-10.44); Carbon Dioxide 25 mmol/L (22-29); Chloride 105 mmol/L (98-107); Estimated GFR-MDRD Greater than 90; Globulin 3.8 g/dL (2.4-3.5); Glucose 77 mg/dL (70-105); Hemoglobin 13.5 g/dL (12.0-16.0); Mean Corpuscular HGB CONC 32.4 g/dL (32.0-36.0); Mean Corpuscular Hemoglobin 27.5 pg (27.0-31.0); Mean Corpuscular Volume 84.9 fL (78.0-98.0); Mean Platelet Volume 7.3 fL (7.4-10.4); Platelet Count 342 thou/uL (130-400); Potassium 3.9 mmol/L (3.5-5.1); RBC Distribution Width 11.9 % (11.5-14.5); Red Blood Cell (RBC) Count 4.91 mill/uL (4.20-5.40); Sodium 138 mmol/L (136-145); White Blood Cell (WBC) Count 5.2 thou/uL (4.8-10.8)
[2018-06-29 00:43] LABS: Troponin I Less than 0.010 ng/mL (< 0.028)
== END 2018-06-29 01:03 | disposition home or self-care (01) ==
LOC: ERS 23:27
DX: I82.220 Acute embolism and thrombosis of inferior vena cava (principal); I82.429 Acute embolism and thrombosis of unspecified iliac vein; F41.9 Anxiety disorder, unspecified; Z79.899 Other long term (current) drug therapy; Z79.01 Long term (current) use of anticoagulants
CPT/HCPCS: 36415; 80053; 83880; 84484; 85025; 85610; 85730; 93005

== ENCOUNTER 2018-08-07 23:05 | Emergency (ER) | payer SELFPAY | END 2018-08-08 00:02 | disposition home or self-care (01) | LOC: ERS 23:05 | DX: R50.9 Fever, unspecified (principal); F41.9 Anxiety disorder, unspecified; Z79.899 Other long term (current) drug therapy; Z79.01 Long term (current) use of anticoagulants | CPT/HCPCS: 87804; 99283 ==

== ENCOUNTER 2018-08-26 10:50 | Outpatient (CLI) | payer MEDICAID ==
--- NOTE | 2018-08-26 09:39 | ULT ---
ULTRASOUND ABDOMEN COMPLETE: HISTORY: A 28-year-old female with generalized abdominal pain. FINDINGS: The gallbladder has normal wall thickness and has no evidence of gallstones or sludge. The hepatic e chogenicity is normal. The kidneys have normal echogenicity, and there is no hydronephrosis. There is no splenomegaly. There is no abdominal aortic aneurysm. No free fluid is identified. The inferi or vena cava is visualized. The pancreas is visualized, although ultrasound is relatively insensitiv e for pancreatic pathology compared to CT and MRI. There is no biliary dilation. The common duct ca liber is 2 mm. IMPRESSION: Normal. jn [] POS: [facility]
--- NOTE | 2018-08-26 10:27 | ULT ---
PELVIC ULTRASOUND: HISTORY: Pelvis and suprapubic pain. TECHNIQUE: Real-time imaging of the pelvis is obtained both transabdominally, as well as with an endovaginal pro be. FINDINGS: The uterus is somewhat difficult to assess due to its position. It has a slightly retroverted fundus . The uterus measures 5.4 x 5.7 x 7.6 cm. The endometrium is thickened at 1.3 cm. Follicles are seen involving both right and left adnexa. On Doppler evaluation with spectral analysis, normal flow is shown to both ovaries. Trace free fluid in the fundus region of the uterus is noted. IMPRESSION: Somewhat retroverted uterus. No definite fibroids. Essentially unremarkable examination. POS: [facility]
== END 2018-08-26 10:51 | disposition home or self-care (01) ==
LOC: BICULT 10:50
PROVIDERS: ATTEND Family Medicine
DX: R10.2 Pelvic and perineal pain (principal)
CPT/HCPCS: 76700; 76856

== ENCOUNTER 2019-01-17 23:06 | Emergency (ER) | payer MEDICAID, OTHER, SELFPAY | END 2019-01-18 00:28 | disposition home or self-care (01) | LOC: ERS 23:06 | DX: J39.9 Disease of upper respiratory tract, unspecified (principal) | CPT/HCPCS: 87804; 99283 ==

== ENCOUNTER 2019-03-30 20:35 | Emergency (ER) | payer SELFPAY ==
[2019-03-30 20:55] LABS: Bilirubin Negative (Negative); Blood, Urine Negative (Negative); Clarity CLEAR (Clear); Glucose, Urine (Dipstick) Negative (Negative); Leukocyte Negative (Negative); Nitrite Negative (Negative); Protein, Urine (Dipstick) Negative (Neg-Trace); Specific Gravity, Urine 1.012 (1.002-1.036)
[2019-03-30 20:56] LABS: Pregnancy Test - Urine (BHCG) Negative (Negative); Pregu Control Background? CLEAR/WHITE (CLR/WHITE); Pregu Control Bar Appear? YES (CONTROL BAR); Specific Gravity 1.012 (1.002-1.036)
[2019-03-30 21:59] LABS: #Basophils 0.1 thou/uL (0.0-0.2); #Lymphocytes 2.5 thou/uL (1.20-3.40); #Monocytes 0.8 thou/uL (0.11-0.59); #Neutrophils 2.2 thou/uL (1.40-6.50); %Basophils 1.4 % (0.0-1.0); %Eosinophils 0.6 % (0.0-10.0); %Lymphocytes 44.5 % (21.0-51.0); %Monocytes 14.1 % (0.0-10.0); %Neutrophils 39.5 % (42.0-75.0); Hemoglobin 11.2 g/dL (12.0-16.0); Mean Corpuscular HGB CONC 32.2 g/dL (32.0-36.0); Mean Corpuscular Hemoglobin 25.4 pg (27.0-31.0); Mean Corpuscular Volume 78.7 fL (78.0-98.0); Mean Platelet Volume 7.4 fL (7.4-10.4); Platelet Count 344 thou/uL (130-400); RBC Distribution Width 15.1 % (11.5-14.5); Red Blood Cell (RBC) Count 4.42 mill/uL (4.20-5.40); White Blood Cell (WBC) Count 5.6 thou/uL (4.8-10.8)
[2019-03-30 22:05] LABS: INR-International Normal Ratio 1.2
[2019-03-30 22:19] LABS: ALT (SGPT) 11 U/L (8-55); AST (SGOT) 12 U/L (5-34); Albumin 4.3 g/dL (3.5-5.0); Alkaline Phosphatase 55 U/L (40-150); Anion Gap 12 mmol/L (10-20); BUN (Urea Nitrogen) 12 mg/dL (7.0-18.7); Bilirubin, Total 0.2 mg/dL (0.2-1.2); Calc. Creatinine Clearance 0 mL/min (70-130); Calcium 9.6 mg/dL (7.8-10.44); Carbon Dioxide 25 mmol/L (22-29); Chloride 104 mmol/L (98-107); Estimated GFR-MDRD Greater than 90; Globulin 3.7 g/dL (2.4-3.5); Glucose 110 mg/dL (70-105); Lipase 53 U/L (8-78); Potassium 3.7 mmol/L (3.5-5.1); Sodium 137 mmol/L (136-145)
--- NOTE | 2019-03-30 22:49 | CT ---
CT ABDOMEN AND PELVIS WITH IV CONTRAST 03/30/19 HISTORY: Abdominal pain which started one week ago. COMPARISON: 06/20/18. FINDINGS: Lung bases are clear. The liver, spleen, pancreas, bilateral adrenal glands, kidneys, abdominal aorta and urinary bladder d emonstrate a normal CT appearance. A T-shaped intrauterine contraceptive device is now noted in place. Adnexal structures have a grossly normal appearance for patient's age. The previously noted tubular feeling defect within the inferior vena cava on a prior exam and extendi ng into the right common iliac vein is no longer visualized. There is mild thickening of the l[place] of the colon in the region of hepatic flexure. While some of th is could be related to incomplete distention, findings may be related to colitis. Remainder of the co dayana which also appears decompressed does not demonstrate suggested thickening of the lombardi. No free fluid, fluid collection or lymphadenopathy is seen in the abdomen or pelvis. No other interval change from prior study. IMPRESSION: 1. Mild wall thickening involving the hepatic flexure suggesting colitis which may be infectious or inflammatory in etiology. 2. Previously noted tubular filling defect within the right common iliac vein and IVC is no lo nger visualized. POS: [facility]
== END 2019-03-30 23:36 | disposition home or self-care (01) ==
LOC: ERS 20:35
DX: K52.9 Noninfective gastroenteritis and colitis, unspecified (principal); F41.9 Anxiety disorder, unspecified
CPT/HCPCS: 36415; 74177; 80053; 81003; 81025; 83690; 85025; 85610

== ENCOUNTER 2019-07-03 07:25 | Emergency (ER) | payer MEDICAID, SELFPAY ==
[2019-07-03] MEDS ORDERED: Acetaminophen 500 MG TAB ONE (09:27)
[2019-07-03] MEDS ORDERED: Ondansetron PF 4 MG/2 ML Vial ONE (09:27)
[2019-07-03] MEDS ORDERED: Morphine 4 MG/ML VIAL ONE (09:27)
[2019-07-03 09:50] LABS: BHCG - Serum Negative (NEGATIVE); Pregs Control Background? CLEAR/WHITE (CLR/WHITE); Pregs Control Bar Appear? YES (CONTROL BAR)
--- NOTE | 2019-07-03 10:19 | CT ---
CT ANGIOGRAM THORAX WITH IV CONTRAST AND 3-D RECONSTRUCTIONS CLINICAL INDICATION: Midsternal chest pain which increases with deep breathing and inspiration. COMPARISON: 04/01/2017 FINDINGS: Pulmonary arteries: No filling defects are seen in the pulmonary arteries to suggest a pulmonary embo hari. Aorta: The aorta is normal in caliber without evidence of an aortic dissection. Lungs: Clear without evidence of consolidation or pleural effusion. Mediastinum: There is no evidence of lymphadenopathy. Thyroid gland: Normal CT appearance. Osseous structures: No acute process. Chest wall: No abnormality visualized. Upper abdomen: Within normal limits for phase of imaging. IMPRESSION: 1. No CT evidence of a pulmonary embolus.
[2019-07-03] MEDS ORDERED: ISOVUE-370 76%-LOCM 1 ML ONE (10:47)
== END 2019-07-03 11:12 | disposition home or self-care (01) ==
LOC: ERS 07:25
DX: R07.89 Other chest pain (principal); F41.9 Anxiety disorder, unspecified; Z86.73 Personal history of transient ischemic attack (TIA), and cerebral infarction without residual deficits; Z79.01 Long term (current) use of anticoagulants
CPT/HCPCS: 36415; 71275; 84703; 96361; 96374; 96375; J2270; J2405; Q9966

== ENCOUNTER 2019-08-12 16:47 | Emergency (ER) | payer SELFPAY ==
--- NOTE | 2019-08-12 17:35 | RAD ---
EXAM: Single view of the chest HISTORY: Chest pain COMPARISON: None FINDINGS: Single view of the chest shows a normal sized cardiomediastinal silhouette. There is no annmarie dence of consolidation, mass, or pleural effusion. The bones are unremarkable. IMPRESSION: No evidence of acute cardiopulmonary disease
[2019-08-12 19:00] LABS: #Basophils 0.1 thou/uL (0.0-0.2); #Lymphocytes 2.1 thou/uL (1.20-3.40); #Monocytes 0.6 thou/uL (0.11-0.59); #Neutrophils 2.6 thou/uL (1.40-6.50); %Basophils 1.5 % (0.0-1.0); %Eosinophils 0.8 % (0.0-10.0); %Lymphocytes 38.9 % (21.0-51.0); %Monocytes 10.8 % (0.0-10.0); %Neutrophils 48.1 % (42.0-75.0); Hemoglobin 12.1 g/dL (12.0-16.0); Mean Corpuscular HGB CONC 31.5 g/dL (32.0-36.0); Mean Corpuscular Hemoglobin 25.6 pg (27.0-31.0); Mean Corpuscular Volume 81.2 fL (78.0-98.0); Mean Platelet Volume 7.7 fL (7.4-10.4); Platelet Count 327 thou/uL (130-400); RBC Distribution Width 15.7 % (11.5-14.5); Red Blood Cell (RBC) Count 4.71 mill/uL (4.20-5.40); White Blood Cell (WBC) Count 5.4 thou/uL (4.8-10.8)
[2019-08-12 19:01] LABS: BHCG - Serum Negative (NEGATIVE)
[2019-08-12 19:02] LABS: INR-International Normal Ratio 1.8; PTT 35.7 SEC (22.9-36.1); Pregs Control Background? CLEAR/WHITE (CLR/WHITE); Pregs Control Bar Appear? YES (CONTROL BAR); Prothrombin Time 20.7 SEC (12.0-14.7)
[2019-08-12 19:06] LABS: D-Dimer Test Less than 0.27 *mcg/mL (0.27-0.43)
[2019-08-12 19:21] LABS: ALT (SGPT) 14 U/L (8-55); AST (SGOT) 16 U/L (5-34); Albumin 4.3 g/dL (3.5-5.0); Alkaline Phosphatase 52 U/L (40-110); Anion Gap 10 mmol/L (10-20); BUN (Urea Nitrogen) 9 mg/dL (7.0-18.7); Bilirubin, Total 0.4 mg/dL (0.2-1.2); CK (CPK) 172 U/L (29-168); Calc. Creatinine Clearance 0 mL/min (70-130); Calcium 9.5 mg/dL (7.8-10.44); Carbon Dioxide 28 mmol/L (22-29); Chloride 104 mmol/L (98-107); Estimated GFR-MDRD Greater than 90; Globulin 3.4 g/dL (2.4-3.5); Glucose 88 mg/dL (70-105); Potassium 3.2 mmol/L (3.5-5.1); Protein, Total 7.7 g/dL (6.0-8.3); Sodium 139 mmol/L (136-145)
[2019-08-12] MEDS ORDERED: traMADol HCl 50 MG TAB ONE (19:21)
== END 2019-08-12 19:22 | disposition home or self-care (01) ==
LOC: ERS 16:47
DX: R07.89 Other chest pain (principal); R07.2 Precordial pain
CPT/HCPCS: 36415; 71045; 80053; 82550; 84703; 85025; 85379; 85610; 85730; 93005